=== PATIENT | male | born 1955 | race Caucasian/White ===

== ENCOUNTER 2022-06-26 04:32 | Inpatient (IN) | payer MEDICARE, MEDICAID ==
[~2022-06-26] VITALS: Ht 175.3 cm; Wt 85.4 kg
[2022-06-26 05:38] LABS: INR 1.1
[2022-06-26 05:39] LABS: CHLORIDE 101 mEq/L (98-107)
[2022-06-26 05:50] LABS: CLARITY URINE CLEAR (CLEAR); COLOR URINE YELLOW (YELLOW); KETONES URINE TRACE (NEGATIVE); LEUKOCYTE ESTERASE URINE TRACE (NEGATIVE); NITRITE URINE NEGATIVE (NEGATIVE); OCCULT BLOOD URINE NEGATIVE (NEGATIVE); PROTEIN URINE 1+ (NEGATIVE); SPECIFIC GRAVITY URINE 1.014 (1.005-1.030); UROBILINOGEN URINE 0.2 E.U./dL (0.2-1.0)
[2022-06-26 06:14] LABS: BASOPHILS % 0.5 % (0.0-2.0); LYMPHOCYTES % 18.4 % (20.0-50.0); NEUTROPHILS % 73.1 % (40.0-76.0)
[2022-06-26 06:20] LABS: HEMOGLOBIN. 10.3 g/dL (14.0-18.0); RED BLOOD CELL COUNT 3.18 mill/uL (4.7-6.1)
[2022-06-26 06:21] LABS: HEMATOCRIT. 28.3 % (42.0-52.0); MEAN CORPUSCULAR HEMOGLOBIN 32.3 pg (28.0-32.0)
[2022-06-26 06:22] LABS: MEAN PLATELET VOLUME 8.1 fl (7.4-10.4); PLATELET 150 x1000/uL (130-400)
[2022-06-26] MEDS ORDERED: SODIUM CHLORIDE 0.9% 1,000 ML IV ONE (07:00)
[2022-06-26] MEDS ORDERED: CLONIDINE 0.1MG TABLET PO PRN (11:15)
[2022-06-26] MEDS ORDERED: DIPHENHYDRAMINE 50MG/ML VIAL IV PRN (11:15)
[2022-06-26] MEDS ORDERED: MAGNESIUM HYDROXIDE 400MG/5ML 30ML UDC PO PRN (11:15)
[2022-06-26] MEDS ORDERED: ACETAMINOPHEN 325MG TABLET PO PRN ×2 (11:15)
[2022-06-26] MEDS ORDERED: SODIUM CHLORIDE 0.9% 1,000 ML IV SCH (11:29)
[2022-06-26 12:00] VITALS: BP 131/59
[2022-06-26] MEDS ORDERED: PAMIDRONATE DISODIUM 90 MG in SODIUM CHLORIDE 0.9% 500 ML IV NR (12:30)
[2022-06-26 15:09] VITALS: BP 131/59
[2022-06-26] MEDS: ONDANSETRON HCL 4MG/2ML INJ IV PRN (15:30)
[2022-06-26 16:00] VITALS: BP 135/73
[2022-06-26] MEDS: DOCUSATE SODIUM 100MG CAPSULE PO SCH (17:00)
[2022-06-26 20:00] VITALS: BP 137/65
[2022-06-26] MEDS ORDERED: ZOLPIDEM TARTRATE 5MG TABLET PO PRN (21:00)
[2022-06-26] MEDS: SODIUM CHLORIDE 0.9% 1,000 ML IV SCH (21:46)
[2022-06-26] MEDS: PANTOPRAZOLE 40MG DR TABLET PO SCH (21:46)
[2022-06-27] VITALS: BP 136/73
[2022-06-27] MEDS: SODIUM CHLORIDE 0.9% 1,000 ML IV SCH ×3 (01:13→12:24)
[2022-06-27 04:00] VITALS: BP 111/71
[2022-06-27] MEDS: ONDANSETRON HCL 4MG/2ML INJ IV PRN (04:57)
[2022-06-27] MEDS: PANTOPRAZOLE 40MG DR TABLET PO SCH ×2 (07:01→21:13)
[2022-06-27 07:35] LABS: BASOPHILS % 0.1 % (0.0-2.0); EOSINOPHILS % 0.3 % (0.0-5.0); HEMATOCRIT. 24.4 % (42.0-52.0); HEMOGLOBIN. 8.8 g/dL (14.0-18.0); LYMPHOCYTES % 7.4 % (20.0-50.0); MEAN CORPUSCULAR HEMOGLOBIN 32.1 pg (28.0-32.0); MEAN PLATELET VOLUME 8.5 fl (7.4-10.4); MONOCYTES % 4.6 % (2.0-8.0); NEUTROPHILS % 87.6 % (40.0-76.0); PLATELET 148 x1000/uL (130-400); RED BLOOD CELL COUNT 2.74 mill/uL (4.7-6.1); RED CELL DISTRIBUTION WIDTH 13.9 % (11.6-14.6)
[2022-06-27 08:00] VITALS: BP 129/59
[2022-06-27 08:02] LABS: CHLORIDE 103 mEq/L (98-107)
[2022-06-27 08:12] LABS: PHOSPHORUS 1.7 mg/dL (2.5-4.9)
[2022-06-27] MEDS: DOCUSATE SODIUM 100MG CAPSULE PO SCH ×2 (09:00→12:21)
[2022-06-27] MEDS ORDERED: MAGNESIUM 4 G PREMIX 100 ML IV NR (11:00)
[2022-06-27] MEDS ORDERED: POTASSIUM PHOS,M-BASIC-D-BASIC 20 MMOL in DEXT 5% WATER 243.3333 ML IV NR (11:00)
[2022-06-27 12:00] VITALS: BP 117/64
[2022-06-27 16:00] VITALS: BP 123/55
[2022-06-27] MEDS ORDERED: DOCUSATE SODIUM SUGAR FREE 100MG/10ML UDC PO SCH (17:00)
[2022-06-27] MEDS ORDERED: DOCUSATE SODIUM SUGAR FREE 100MG/10ML UDC NG SCH (17:00)
[2022-06-27 21:00] VITALS: BP 105/53
[2022-06-28] VITALS (11 sets, daily range): BP systolic 97–110; BP diastolic 39–64
[2022-06-28] MEDS: SODIUM CHLORIDE 0.9% 1,000 ML IV SCH ×3 (06:06→17:01)
[2022-06-28 06:17] LABS: BASOPHILS % 0.4 % (0.0-2.0); EOSINOPHILS % 1.3 % (0.0-5.0); HEMOGLOBIN. 7.1 g/dL (14.0-18.0); LYMPHOCYTES % 14.7 % (20.0-50.0); MEAN CORPUSCULAR HEMOGLOBIN 32.7 pg (28.0-32.0); MEAN CORPUSCULAR VOLUME 91.2 fL (80.0-94.0); MEAN PLATELET VOLUME 8.6 fl (7.4-10.4); MONOCYTES % 6.2 % (2.0-8.0); NEUTROPHILS % 77.4 % (40.0-76.0); PLATELET 118 x1000/uL (130-400); RED BLOOD CELL COUNT 2.18 mill/uL (4.7-6.1); RED CELL DISTRIBUTION WIDTH 14.1 % (11.6-14.6)
[2022-06-28 06:28] LABS: PHOSPHORUS 1.6 mg/dL (2.5-4.9)
[2022-06-28 08:26] LABS: HEMATOCRIT. 19.9 % (42.0-52.0)
[2022-06-28] MEDS: DOCUSATE SODIUM SUGAR FREE 100MG/10ML UDC PO SCH ×2 (08:39→17:01)
[2022-06-28] MEDS: PANTOPRAZOLE 40MG DR TABLET PO SCH (08:39)
[2022-06-28] MEDS ORDERED: DEXTROSE 50% WATER 50ML SYRINGE IV PRN (09:00)
[2022-06-28] MEDS ORDERED: POTASSIUM PHOS,M-BASIC-D-BASIC 20 MMOL in DEXT 5% WATER 243.3333 ML IV NR (11:00)
[2022-06-28] MEDS: PANTOPRAZOLE SODIUM 40 MG/VIAL IV SCH ×2 (11:15→20:21)
[2022-06-28] MEDS: BLOOD SUGAR DIAGNOSTIC STRIP TEST SCH ×3 (11:15→20:22)
[2022-06-28 11:42] LABS: TOTAL IRON BINDING CAPACITY 201 ug/dL (250-450)
[2022-06-28] MEDS: INSULIN LISPRO 100 UNITS/ML SUBCUT SCH ×3 (11:43→20:21)
[2022-06-28 16:39] LABS: FERRITIN 386 ng/mL (22-322)
[2022-06-28 16:50] LABS: VITAMIN B12 SERUM 213 pg/mL (211-911)
[2022-06-28 18:32] LABS: HEMOGLOBIN 7.6 g/dL (14.0-18.0)
[2022-06-29] VITALS (7 sets, daily range): BP systolic 96–109; BP diastolic 53–66
[2022-06-29] MEDS: SODIUM CHLORIDE 0.9% 1,000 ML IV SCH ×4 (00:20→11:13)
[2022-06-29] MEDS: BLOOD SUGAR DIAGNOSTIC STRIP TEST SCH ×4 (06:24→21:00)
[2022-06-29] MEDS: INSULIN LISPRO 100 UNITS/ML SUBCUT SCH ×4 (06:25→21:04)
[2022-06-29 08:07] LABS: BASOPHILS % 0.3 % (0.0-2.0); EOSINOPHILS % 2.2 % (0.0-5.0); HEMATOCRIT. 21.5 % (42.0-52.0); HEMOGLOBIN. 7.6 g/dL (14.0-18.0); MEAN CORPUSCULAR HEMOGLOBIN 32.1 pg (28.0-32.0); MEAN CORPUSCULAR VOLUME 90.6 fL (80.0-94.0); MONOCYTES % 6.4 % (2.0-8.0); NEUTROPHILS % 78.1 % (40.0-76.0); PLATELET 98 x1000/uL (130-400); RED BLOOD CELL COUNT 2.37 mill/uL (4.7-6.1); RED CELL DISTRIBUTION WIDTH 14.3 % (11.6-14.6)
[2022-06-29] MEDS: PANTOPRAZOLE SODIUM 40 MG/VIAL IV SCH ×2 (08:20→21:02)
[2022-06-29] MEDS: DOCUSATE SODIUM SUGAR FREE 100MG/10ML UDC PO SCH ×2 (08:20→16:14)
[2022-06-29 09:07] LABS: PHOSPHORUS 2.3 mg/dL (2.5-4.9)
[2022-06-29] MEDS ORDERED: MAGNESIUM 4 G PREMIX 100 ML IV NR (11:00)
[2022-06-29] MEDS ORDERED: MAGNESIUM 2 G PREMIX 50 ML IV NR (11:00)
[2022-06-29] MEDS ORDERED: SODIUM PHOS,M-BASIC-D-BASIC 20 MM in DEXT 5% WATER 243.3333 ML IV NR (11:00)
[2022-06-29] MEDS ORDERED: POTASSIUM PHOS,M-BASIC-D-BASIC 15 MMOL in DEXT 5% WATER 245 ML IV NR (11:00)
[2022-06-29] MEDS ORDERED: LACTULOSE 20G/30ML UDC PO NR (12:45)
[2022-06-29] MEDS: FOLIC ACID 1MG TABLET PO SCH (13:59)
[2022-06-29 20:14] LABS: HEMATOCRIT 24.9 % (42.0-52.0); HEMOGLOBIN 8.6 g/dL (14.0-18.0)
[2022-06-30] VITALS (17 sets, daily range): BP systolic 98–140; BP diastolic 52–84
[2022-06-30] MEDS: BLOOD SUGAR DIAGNOSTIC STRIP TEST SCH ×2 (06:12→11:19)
[2022-06-30] MEDS: INSULIN LISPRO 100 UNITS/ML SUBCUT SCH ×2 (06:37→11:19)
[2022-06-30 07:44] LABS: BASOPHILS % 0.3 % (0.0-2.0); EOSINOPHILS % 2.7 % (0.0-5.0); HEMATOCRIT. 24.4 % (42.0-52.0); HEMOGLOBIN. 8.7 g/dL (14.0-18.0); LYMPHOCYTES % 13.9 % (20.0-50.0); MEAN CORPUSCULAR HEMOGLOBIN 31.4 pg (28.0-32.0); MEAN PLATELET VOLUME 8.9 fl (7.4-10.4); MONOCYTES % 5.7 % (2.0-8.0); NEUTROPHILS % 77.4 % (40.0-76.0); PLATELET 113 x1000/uL (130-400); RED BLOOD CELL COUNT 2.77 mill/uL (4.7-6.1); RED CELL DISTRIBUTION WIDTH 15.2 % (11.6-14.6)
[2022-06-30 08:42] LABS: PHOSPHORUS 2.2 mg/dL (2.5-4.9)
[2022-06-30] MEDS ORDERED: SODIUM BICARBONATE 4% (2.4MEQ) 5ML VIAL IV ONE (11:02)
[2022-06-30] MEDS ORDERED: LIDOCAINE HCL 1% 10 MG/ML 10ML VIAL ONE (11:02)
[2022-06-30] MEDS ORDERED: FENTANYL CITRATE/PF 50MCG/ML 2ML VIAL ONE (11:55)
[2022-06-30] MEDS ORDERED: FENTANYL CITRATE/PF 50MCG/ML 2ML VIAL IV ONE (12:30)
[2022-06-30] MEDS: FOLIC ACID 1MG TABLET PO SCH (13:23)
[2022-06-30] MEDS: DOCUSATE SODIUM SUGAR FREE 100MG/10ML UDC PO SCH ×2 (13:23→17:25)
[2022-06-30] MEDS: PANTOPRAZOLE SODIUM 40 MG/VIAL IV SCH (13:23)
[2022-06-30] MEDS: CYANOCOBALAMIN 1000MCG/ML VIAL IM SCH (13:23)
[2022-06-30] MEDS ORDERED: ALENDRONATE SODIUM 35MG TABLET PO SCH (14:30)
[2022-06-30 19:35] LABS: HEMATOCRIT 27.4 % (42.0-52.0); HEMOGLOBIN 9.8 g/dL (14.0-18.0)
[2022-06-30] MEDS: OMEPRAZOLE 20MG CAPSULE EXTENDED RELEASE PO SCH (20:28)
[2022-07-01] VITALS: BP 130/60
[2022-07-01 04:00] VITALS: BP 129/68
[2022-07-01] MEDS: OMEPRAZOLE 20MG CAPSULE EXTENDED RELEASE PO SCH ×2 (06:10→21:09)
[2022-07-01 07:09] LABS: ALBUMIN 2.4 g/dL (2.9-4.4); ALPHA-1-GLOBULIN 0.3 g/dL (0.0-0.4); ALPHA-2-GLOBULIN 0.6 g/dL (0.4-1.0); BETA GLOBULIN 0.7 g/dL (0.7-1.3); GAMMA GLOBULINS 0.7 g/dL (0.4-1.8); GLOBULIN TOTAL 2.3 g/dL (2.2-3.9); M-SPIKE Not Observed g/dL (Not Observed); TOTAL PROTEIN SERUM 4.7 g/dL (6.0-8.5)
[2022-07-01 08:00] VITALS: BP 122/62
[2022-07-01] MEDS: DOCUSATE SODIUM SUGAR FREE 100MG/10ML UDC PO SCH ×2 (09:00→17:00)
[2022-07-01 09:28] LABS: BASOPHILS % 0.2 % (0.0-2.0); EOSINOPHILS % 1.7 % (0.0-5.0); HEMOGLOBIN. 9.4 g/dL (14.0-18.0); LYMPHOCYTES % 14.6 % (20.0-50.0); MEAN CORPUSCULAR HEMOGLOBIN 31.9 pg (28.0-32.0); MEAN PLATELET VOLUME 8.4 fl (7.4-10.4); MONOCYTES % 8.3 % (2.0-8.0); NEUTROPHILS % 75.2 % (40.0-76.0); PLATELET 129 x1000/uL (130-400); RED BLOOD CELL COUNT 2.96 mill/uL (4.7-6.1); RED CELL DISTRIBUTION WIDTH 14.4 % (11.6-14.6)
[2022-07-01 11:27] LABS: PHOSPHORUS 1.4 mg/dL (2.5-4.9)
[2022-07-01 12:00] VITALS: BP 100/42
[2022-07-01] MEDS: CYANOCOBALAMIN 1000MCG/ML VIAL IM SCH (12:28)
[2022-07-01] MEDS: FOLIC ACID 1MG TABLET PO SCH (12:29)
[2022-07-01 16:00] VITALS: BP 129/81
[2022-07-01 20:00] VITALS: BP 125/66
[2022-07-02] VITALS: BP 114/61
[2022-07-02 04:00] VITALS: BP 139/73
[2022-07-02 08:00] VITALS: BP 146/65
[2022-07-02 08:09] LABS: BASOPHILS % 0.2 % (0.0-2.0); EOSINOPHILS % 1.6 % (0.0-5.0); HEMATOCRIT. 26.2 % (42.0-52.0); HEMOGLOBIN. 9.2 g/dL (14.0-18.0); MEAN CORPUSCULAR VOLUME 88.5 fL (80.0-94.0); MEAN PLATELET VOLUME 8.1 fl (7.4-10.4); MONOCYTES % 9.9 % (2.0-8.0); NEUTROPHILS % 73.3 % (40.0-76.0); PLATELET 132 x1000/uL (130-400); RED BLOOD CELL COUNT 2.96 mill/uL (4.7-6.1); RED CELL DISTRIBUTION WIDTH 14.6 % (11.6-14.6)
[2022-07-02] MEDS: DOCUSATE SODIUM SUGAR FREE 100MG/10ML UDC PO SCH ×2 (08:55→17:00)
[2022-07-02] MEDS: OMEPRAZOLE 20MG CAPSULE EXTENDED RELEASE PO SCH (08:55)
[2022-07-02] MEDS: CYANOCOBALAMIN 1000MCG/ML VIAL IM SCH (08:55)
[2022-07-02] MEDS: FOLIC ACID 1MG TABLET PO SCH (08:55)
[2022-07-02] MEDS ORDERED: POTASSIUM PHOS,M-BASIC-D-BASIC 30 MMOL in DEXT 5% WATER 500 ML IV ONE (09:30)
[2022-07-02] MEDS ORDERED: CYANOCOBALAMIN 1000MCG/ML VIAL IM NR (09:45)
[2022-07-02] MEDS ORDERED: MAGNESIUM 4 G PREMIX 100 ML IV NR (11:00)
[2022-07-02 12:00] VITALS: BP 129/77
[2022-07-02] MEDS ORDERED: SODIUM PHOS,M-BASIC-D-BASIC 30 MM in DEXT 5% WATER 500 ML IV ONE (12:00)
[2022-07-02 16:00] VITALS: BP 126/71
[2022-07-02 17:39] VITALS: BP 126/71
== END 2022-07-02 18:30 | disposition home health service (06) | DRG 686 ==
LOC: ER 04:32 → EDBEDREQ 08:48 → EDBEDREQSVC 08:57 → EDBEDREQTM 09:57 → EDBEDREQ 09:57 → 8WST 13:06
PROVIDERS: ADMIT Internal Medicine; ATTEND Internal Medicine
PROC: 30233N1 Transfusion of Nonautologous Red Blood Cells into Peripheral Vein, Percutaneous Approach (ICD-10-PCS; 2022-06-28)
PROC: 0TB13ZX Excision of Left Kidney, Percutaneous Approach, Diagnostic (ICD-10-PCS; principal; 2022-06-29)
DX: C64.2 Malignant neoplasm of left kidney, except renal pelvis (principal); G93.41 Metabolic encephalopathy; N17.9 Acute kidney failure, unspecified; E87.1 Hypo-osmolality and hyponatremia; C78.00 Secondary malignant neoplasm of unspecified lung; E83.52 Hypercalcemia; D64.9 Anemia, unspecified; E11.22 Type 2 diabetes mellitus with diabetic chronic kidney disease; E53.8 Deficiency of other specified B group vitamins; E83.39 Other disorders of phosphorus metabolism; E83.42 Hypomagnesemia; E86.0 Dehydration; E87.5 Hyperkalemia; K29.70 Gastritis, unspecified, without bleeding; N18.9 Chronic kidney disease, unspecified; M19.90 Unspecified osteoarthritis, unspecified site; Z79.83 Long term (current) use of bisphosphonates
CPT/HCPCS: 36415; 71045; 71250; 73502; 74176; 76942; 80048; 80053; 81003; 82270; 82607; 82728; 82746; 82962; 83036; 83540; 83550; 83735; 83880; 83970; 84100; 84155; 84165; 84484; 85014; 85018; 85025; 85044; 86850; 86900; 86920; 88304; 93005; 93970; 97162; 97166; 99291; A6261; C9113; J1815; J2405; J2430; J3010; J3420; J3475; J3490; J7030; J7040; J7060; P9016